=== PATIENT | male | born 1995 | race Hispanic/Latino ===

== ENCOUNTER 2020-09-28 04:30 | Emergency (ER) | payer SELFPAY ==
[2020-09-28] MEDS ORDERED: IBUPROFEN 800 MG TAB PO ONE (06:00)
[2020-09-28 06:02] VITALS: BP 149/86
--- NOTE | 2020-09-28 06:04 | Emergency Department Report ---
ED General Adult HPI - General Stated complaint: NECK PAIN Time Seen by Provider: 09/28/20 05:59 Source: patient Mode of arrival: Ambulatory - History of Present Illness Initial comments: This is a 25-year-old male he is complaining of left neck pain symptoms started 2 weeks ago. Left neck pain is also associated with numbness going down his left arm especially when he is driving or when he lays down to sleep. Patient denies any falls or traumas no motor vehicle accidents. He is also complaining of inability to sleep. Patient's current pain level is 2/10 . he has full range of motion of his neck. Denies any prior symptoms. he denies chest pain he denies shortness of breath no fever no chills no nausea no vomiting he is in no acute distress -: week(s) (2 weeks) Location: neck Radiation: extremity (Neck pain radiating down to the left arm) Consistency: intermittent Improves with: none Worsens with: other (Driving and when he lays down) Associated Symptoms: denies other symptoms. denies: confusion, chest pain, cough, diaphoresis, fever/chills, loss of appetite, malaise, nausea/vomiting, shortness of breath, syncope, weakness Treatments Prior to Arrival: none - Related Data Previous Rx's Medication Instructions Recorded Last Taken Type methylPREDNISolone [Medrol 4MG 4 mg PO DAILY #1 tab.ds.pk 09/28/20 Unknown Rx DOSEPAK (21 tabs)] Allergies Allergy/AdvReac Type Severity Reaction Status Date / Time amoxicillin Allergy Hives Verified 09/28/20 06:13 ED Review of Systems ROS: Stated complaint: NECK PAIN Other details as noted in HPI Comment: All other systems reviewed and negative Constitutional: no symptoms reported Eyes: as per HPI. denies: eye discharge ENT: denies: ear pain, throat pain, dental pain Cardiovascular: denies: chest pain, palpitations, syncope Endocrine: no symptoms reported. denies: intolerance to cold, intolerance to heat Gastrointestinal: denies: abdominal pain Musculoskeletal: other (Left neck pain). denies: back pain, joint swelling Skin: denies: rash, lesions, change in color, change in hair/nails Neurological: abnormal gait. denies: headache, weakness, numbness, paresthesias ED Past Medical Hx - Past Medical History Previous Medical History?: No - Medications Home Medications: Home Medications Medication Instructions Recorded Confirmed Last Taken Type methylPREDNISolone [Medrol 4MG 4 mg PO DAILY #1 tab.ds.pk 09/28/20 Unknown Rx DOSEPAK (21 tabs)] ED Physical Exam - General Limitations: No Limitations General appearance: alert, in no apparent distress - Head Head exam: Present: atraumatic, normal inspection - Eye Eye exam: Present: normal appearance - ENT ENT exam: Present: normal exam, normal orophraynx, mucous membranes moist - Neck Neck exam: Present: normal inspection - Expanded Neck Exam Expanded Neck exam: Present: tenderness, other (No cervical point tenderness full range of motion of his neck). Absent: midline deformity, tracheal deviation 1 - Location of pain. No lesions, no rash, no erythema, skin intact no swelling - Respiratory Respiratory exam: Present: normal lung sounds bilaterally. Absent: respiratory distress, wheezes, rales, rhonchi - Cardiovascular Cardiovascular Exam: Present: regular rate, normal heart sounds - Extremities Exam Extremities exam: Present: normal inspection, full ROM, normal capillary refill. Absent: tenderness - Back Exam Back exam: Present: normal inspection. Absent: paraspinal tenderness, vertebral tenderness - Neurological Exam Neurological exam: Present: alert, oriented X3, CN II-XII intact, normal gait, other - Psychiatric Psychiatric exam: Present: normal affect (Muscle strength 5/5 bilaterally), normal mood - Skin Skin exam: Present: warm, dry, intact ED Course Vital Signs 09/28/20 05:55 Temperature 98.0 F Pulse Rate 85 Respiratory 18 Rate Blood Pressure 149/86 O2 Sat by Pulse 99 Oximetry ED Medical Decision Making - Medical Decision Making 25-year-old male complaining of left paraspinal neck pain no vertebral point tenderness. This pain has been going on for 2 weeks he denies any falls traumas no injury no fever no stiff neck he has full range of motion of his neck the left neck pain is associated with numbness and tingling down his left arm. And it worsens when he is he drives or when he lays down to sleep. Patient also mentions that he is suffering from insomnia. On examination he has full range of motion of his neck is neurologically intact muscle strength of his upper extremities is 5/5 bilaterally he has no cervical point tenderness. I recommend that patient tries melatonin for sleep and I discussed good sleep hygiene. Also recommend that patient follow-up with an orthopedic doctor to get possible MRI to further evaluate his neck. - Differential Diagnosis Neck strain, cervical radiculopathy Critical care attestation.: If time is entered above; I have spent that time in minutes in the direct care of this critically ill patient, excluding procedure time. ED Disposition Clinical Impression: Cervical radiculopathy Neck muscle strain Qualifiers: Encounter type: initial encounter Qualified Code(s): S16.1XXA - Strain of muscle, fascia and tendon at neck level, initial encounter Insomnia Qualifiers: Insomnia type: unspecified Qualified Code(s): G47.00 - Insomnia, unspecified Disposition: TO HOME OR SELFCARE Is pt being admited?: No Does the pt Need Aspirin: No Condition: Stable Instructions: How to Use Cold Therapy, [id number], Radicular Pain, Cervical Strain and Sprain Rehab-SportsMed, Cervical Radiculopathy, [id number] Additional Instructions: Use cold compress for the next 2 days then you could apply warm compress to your neck. Please follow-up with your primary care doctor or an orthopedic doctor for further evaluation of the neck pain. Take the Medrol Dosepak as prescribed you may also use Tylenol in addition for pain 2 tablets every 4-6 hours as needed for pain consider taking [id number] melatonin for sleep. Return to the emergency room if you develop any worsening symptoms such as inability to move your neck weakness in your extremities or just no improvement at all Prescriptions: methylPREDNISolone [Medrol 4MG DOSEPAK (21 tabs)] 4 mg PO DAILY #1 tab.ds.pk Referrals: MARNI HOLLINS MD [Primary Care Provider] - 3-5 Days CRISTI MIX MD [Staff Physician] - 3-5 Days BRIANNA DRIVER MD [Staff Physician] - 3-5 Days Time of Disposition: 06:11
== END 2020-09-28 06:48 | disposition home or self-care (01) ==
LOC: ED 04:30
DX: S16.1XXA Strain of muscle, fascia and tendon at neck level, initial encounter (principal); M54.12 Radiculopathy, cervical region; G47.00 Insomnia, unspecified; Z79.899 Other long term (current) drug therapy; Z88.1 Allergy status to other antibiotic agents; X58.XXXA Exposure to other specified factors, initial encounter; Y93.89 Activity, other specified; Y92.89 Other specified places as the place of occurrence of the external cause; Y99.8 Other external cause status
CPT/HCPCS: 99282